=== PATIENT | male | born 1960 | race Caucasian/White ===

== ENCOUNTER 2017-02-13 13:35 | Emergency (ER) | payer OTHER ==
[~2017-02-13] VITALS: Ht 175.3 cm; Wt 94.0 kg
[~2017-02-13 13:35] MED LIST: BUSP10 PO; DEPA500T3 PO; NAPR-576 PO; SERT-132 PO
[2017-02-13 13:40] VITALS: BP 131/66; PULSE 83; RESP 16; TEMP 97.7; O2SAT 97
[2017-02-13] MEDS ORDERED: BUSP10TA PO (13:59)
[2017-02-13] MEDS ORDERED: DEPA500T3 PO (13:59)
[2017-02-13] MEDS ORDERED: SERT-132 PO (13:59)
--- NOTE | 2017-02-13 14:17 | PD ---
HPI Chief Complaint: Injury Time Seen by Provider: 14:13 Travel History International Travel<30 days: No Contact w/Intl Traveler<30days: No Traveled to known affect area: No History of Present Illness HPI 56-year-old male here with bilateral hand pain after bricks fell onto his hands issued at work yesterday. He reports normal sensation and full range of motion of all digits. He has pain with palpation of the left third digit and right third digit. He came for evaluation today because the pain continued. Symptom severity is mild. Aggravated by palpation of the fingers and range of motion and relieved with rest PFSH Past Medical History Blood Disorders: No Bipolar Disorder: Yes Depression: Yes Cancer: No Cardiovascular Problems: Yes High Cholesterol: Yes Diminished Hearing: No Endocrine: No Gastrointestinal Disorders: Yes Genitourinary: No Headaches: Yes Immune Disorder: No Musculoskeletal: Yes Neurologic: Yes Psychiatric: Yes Reproductive: No Respiratory: Yes Migraines: Yes Tetanus Vaccination: Unknown Past Surgical History Pacemaker: No Other Surgery: Yes Social History Alcohol Use: No Tobacco Use: Yes (1/2 ppd) Substance Use: No Allergies-Medications (Allergen,Severity, Reaction): Coded Allergies: No Known Allergies (Verified , 08/17/15) Reported Meds & Prescriptions Reported Meds & Active Scripts Active Reported Sertraline (Sertraline HCl) 50 Mg Tab 50 Mg PO DAILY Depakote ER (Divalproex Sodium) 500 Mg Wilmer 1,500 Mg PO DAILY Buspirone (Buspirone HCl) 10 Mg Tab 10 Mg PO DAILY Review of Systems Except as stated in HPI: all other systems reviewed are Neg Physical Exam Narrative GENERAL: Well-nourished, well-developed patient. SKIN: Focused skin assessment warm/dry. Small abrasion to the left hand dorsal aspect HEAD: Normocephalic. EYES: No scleral icterus. No injection or drainage. NECK: Supple, trachea midline. No JVD or lymphadenopathy. MUSCULOSKELETAL: No cyanosis, or edema. Reported pain and tenderness to bilateral hands. Small amount of ecchymosis noted to the right hand distal third digit. Patient has full range of motion and normal sensation of both hands. No deformity. Brisk cap refill. Data Data Last Documented VS Vital Signs Date Time Temp Pulse Resp B/P (MAP) Pulse Ox O2 Delivery O2 Flow Rate FiO2 02/13/17 13:40 97.7 83 16 131/66 (87) 97 Orders Orders Hand, Complete ([id number]) (02/13/17 ) Hand, Complete ([id number]) (02/13/17 ) [facility] Medical Decision Making Medical Screen Exam Complete: Yes Emergency Medical Condition: Yes Differential Diagnosis Contusion, abrasion, finger sprain, fracture Narrative Course 56-year-old male here for evaluation of bilateral hand pain after bricks fell onto his hands at work yesterday. On exam he has several very superficial abrasions and reported tenderness throughout his hands. No deformity noted. No swelling noted. Small amount of ecchymosis to the right third digit. Full range of motion and normal sensation. X-ray pending X-ray is negative for fracture Diagnosis Primary Impression: Contusion of hand(s) Referrals: [facility] Additional Instructions: Take [id number] ibuprofen 600 mg every 6 hours as needed for pain. Ice and elevate the extremities. Avoid heavy lifting or strenuous activity. Disposition: 01 DISCHARGE HOME Condition: Stable Marilee Hewitt Feb 13, 2017 14:17
--- NOTE | 2017-02-13 14:22 | RADRPT ---
EXAM DATE/TIME: 02/13/2017 14:00 [facility] COMPARISON: No previous studies available for comparison. INDICATIONS : Left hand pain to anterior distal phalanges after sandra fell on it. MEDICAL HISTORY : None. SURGICAL HISTORY : None. ENCOUNTER: Initial ACUITY: 2 days PAIN SCORE: 8/10 LOCATION: Left distal phalanges FINDINGS: Three view examination of the left hand demonstrates no soft tissue swelling, dislocation, or fractur e. The carpal bones appear intact. The interphalangeal and metacarpophalangeal joints are intact. There is a well-corticated fragment adjacent to the tip of the ulnar styloid characteristic of old i njury. Bony mineralization is normal. CONCLUSION: 1. No evidence of recent bony injury. 2. No radiopaque foreign bodies. 3. Old injury to the tip of the ulnar styloid without bony fusion. Ramone Howell MD on February 13, 2017 at 14:20 Board Certified Radiologist. This report was verified electronically.
--- NOTE | 2017-02-13 14:23 | RADRPT ---
EXAM DATE/TIME: 02/13/2017 14:00 [facility] COMPARISON: No previous studies available for comparison. INDICATIONS : Right hand pain primarily to anterior thumb area after a cinderblock fell on it. MEDICAL HISTORY : None. SURGICAL HISTORY : None. ENCOUNTER: Initial ACUITY: 2 days PAIN SCORE: 9/10 LOCATION: Right hand/thumb. FINDINGS: Three view examination of the right hand demonstrates no soft tissue swelling, dislocation, or fractu re. The carpal bones appear intact. The interphalangeal and metacarpophalangeal joints are intact. Bony mineralization is normal. No radiopaque foreign bodies. CONCLUSION: No evidence of recent bone injury. Ramone Howell MD on February 13, 2017 at 14:21 Board Certified Radiologist. This report was verified electronically.
== END 2017-02-13 15:30 | disposition home or self-care (01) ==
LOC: PHEFT 13:35
DX: S60.221A Contusion of right hand, initial encounter (principal); S60.222A Contusion of left hand, initial encounter; W20.8XXA Other cause of strike by thrown, projected or falling object, initial encounter; Y99.0 Civilian activity done for income or pay
CPT/HCPCS: 73130; 99283

== ENCOUNTER 2017-08-23 16:40 | Emergency (ER) | payer MEDICARE, OTHER ==
[~2017-08-23] VITALS: Ht 177.8 cm; Wt 95.0 kg
[~2017-08-23 16:40] MED LIST changes: -BUSP10 PO; +BUSP10TA PO; -NAPR-576 PO
[2017-08-23 16:45] VITALS: BP 114/62; PULSE 97; RESP 20; TEMP 98.6; O2SAT 98
--- NOTE | 2017-08-23 17:15 | PD ---
HPI Chief Complaint: Edema Time Seen by Provider: 17:14 Travel History International Travel<30 days: No Contact w/Intl Traveler<30days: No Traveled to known affect area: No History of Present Illness HPI 57-year-old male came to the emergency room with history of bilateral lower extremity edema for past 1 week. Patient says he has been having trouble wearing his shoes because of the swelling. He has some pain once again because of the swelling. No history of fever or chills. No history of injury. He noticed a rash appearing yesterday over the lower extremity below the knee bilaterally. Vital signs are stable. Patient has psychiatric history and is on psych medications. No known medical conditions as far as the patient knows. Patient has never had this kind of swelling in the past. He is here with his . Patient is concerned if this could be from bug bites. [facility] Past Medical History Narrative Medical List of his past medical, surgical, social and family history is reviewed from the nursing note Blood Disorders: No Bipolar Disorder: Yes Depression: Yes Cancer: No Cardiovascular Problems: Yes High Cholesterol: Yes Diminished Hearing: No Endocrine: No Gastrointestinal Disorders: Yes Genitourinary: No Headaches: Yes Immune Disorder: No Musculoskeletal: Yes Neurologic: Yes Psychiatric: Yes Reproductive: No Respiratory: Yes Migraines: Yes Past Surgical History Pacemaker: No Other Surgery: Yes Social History Alcohol Use: No Tobacco Use: Yes (/2 ppd) Substance Use: No Allergies-Medications (Allergen,Severity, Reaction): Coded Allergies: No Known Allergies (Verified , 08/17/15) Comments List of his allergies reviewed from the nursing note. Reported Meds & Prescriptions Reported Meds & Active Scripts Active Reported Sertraline (Sertraline HCl) 50 Mg Tab 50 Mg PO DAILY Depakote ER (Divalproex Sodium) 500 Mg Wilmer 1,500 Mg PO DAILY Buspirone (Buspirone HCl) 10 Mg Tab 10 Mg PO DAILY Narrative Medication List of his home medications reviewed from the nursing note. Review of Systems Except as stated in HPI: all other systems reviewed are Neg Musculoskeletal: Positive: Edema Skin: Positive Rash Physical Exam Narrative GENERAL: Awake, alert, poor skin hygiene SKIN: Focused skin assessment warm/dry. Poor skin hygiene. Bilateral symmetrical erythematous maculopapular rash on bilateral lower extremities extending distal to the knees HEAD: Atraumatic. Normocephalic. EYES: Pupils equal and round. No scleral icterus. No injection or drainage. ENT: No nasal bleeding or discharge. Mucous membranes pink and moist. NECK: Trachea midline. No JVD. CARDIOVASCULAR: Regular rate and rhythm. No murmur appreciated. RESPIRATORY: No accessory muscle use. Clear to auscultation. Breath sounds equal bilaterally. GASTROINTESTINAL: Abdomen soft, non-tender, nondistended. Hepatic and splenic margins not palpable. MUSCULOSKELETAL: No obvious deformities. No clubbing. No cyanosis. Bilateral lower extremity ankle edema NEUROLOGICAL: Awake and alert. No obvious cranial nerve deficits. Motor grossly within normal limits. Normal speech. PSYCHIATRIC: Appropriate mood and affect; insight and judgment normal. Data Data Last Documented VS Vital Signs Date Time Temp Pulse Resp B/P (MAP) Pulse Ox O2 Delivery O2 Flow Rate FiO2 08/23/17 16:45 98.6 97 20 114/62 (79) 98 Orders Orders Complete Blood Count With Diff (08/23/17 17:29) Basic Metabolic Panel (Bmp) (08/23/17 17:29) B-Type Natriuretic Peptide (08/23/17 17:29) Electrocardiogram (08/23/17 ) Valproic Acid (Depakene) (08/23/17 17:29) Ed Discharge Order (08/23/17 19:50) Labs Laboratory Tests Test 08/23/17 17:40 White Blood Count 6.3 TH/MM3 Red Blood Count 3.86 MIL/MM3 Hemoglobin 12.3 GM/DL Hematocrit 34.9 % Mean Corpuscular Volume 90.6 FL Mean Corpuscular Hemoglobin 32.0 PG Mean Corpuscular Hemoglobin Concent 35.3 % Red Cell Distribution Width 13.8 % Platelet Count 203 TH/MM3 Mean Platelet Volume 8.3 FL Neutrophils (%) (Auto) 71.3 % Lymphocytes (%) (Auto) 16.8 % Monocytes (%) (Auto) 9.8 % Eosinophils (%) (Auto) 1.4 % Basophils (%) (Auto) 0.7 % Neutrophils # (Auto) 4.5 TH/MM3 Lymphocytes # (Auto) 1.1 TH/MM3 Monocytes # (Auto) 0.6 TH/MM3 Eosinophils # (Auto) 0.1 TH/MM3 Basophils # (Auto) 0.0 TH/MM3 CBC Comment DIFF FINAL Differential Comment Blood Urea Nitrogen 11 MG/DL Creatinine 1.21 MG/DL Random Glucose 120 MG/DL Calcium Level 8.9 MG/DL Sodium Level 142 MEQ/L Potassium Level 3.8 MEQ/L Chloride Level 106 MEQ/L Carbon Dioxide Level 25.4 MEQ/L Anion Gap 11 MEQ/L Estimat Glomerular Filtration Rate 62 ML/MIN B-Type Natriuretic Peptide 53 PG/ML Valproic Acid (Depakene) Level 26 MCG/ML MDM Medical Decision Making Medical Screen Exam Complete: Yes Emergency Medical Condition: Yes Medical Record Reviewed: Yes Interpretation(s) Twelve-lead EKG was reviewed by me. Normal sinus rhythm, normal axis, nonspecific ST-T wave changes. Heart rate of 83 bpm. Differential Diagnosis Congestive heart failure, dependent edema, drug adverse reaction Narrative Course 6:01 PM awaiting for blood test results to come back. Interestingly Depakote could cause rash and peripheral edema as well. If all the test results come back negative I would recommend the Depakote be taken off his medication regime. CBC is back and within normal limits. 7:25 PM all the labs are back except for the BNP which has been pending for past 2 hours since the machine at the lab is being calibrated I was told. Procedures EKG Prior to Arrival: No Diagnosis Primary Impression: Pedal edema Additional Impression: Adverse reaction to Depakote Referrals: [facility] Additional Instructions: You need to follow-up with your psychiatrist and talk to him about your symptoms being a possible adverse reaction to Depakote. Depakote should be discontinued by your psychiatrist. Follow-up at [facility] whose address has been provided to you on this discharge paper. Return to the ER if condition worsens any other new concerns. Keep the legs elevated as much as possible. Disposition: 01 DISCHARGE HOME Condition: Stable Alicia George MD Aug 23, 2017 17:15
[2017-08-23 17:56] LABS: AUTOMATED NEUTROPHIL # 4.5 TH/MM3 (1.8-7.7); BASOPHIL % 0.7 % (0.0-2.0); EOSINOPHIL # 0.1 TH/MM3 (0-0.4); EOSINOPHIL % 1.4 % (0.0-4.0); HEMATOCRIT 34.9 % (39.0-51.0); HEMOGLOBIN 12.3 GM/DL (13.0-17.0); LYMPH % 16.8 % (9.0-44.0); LYMPHOCYTE # 1.1 TH/MM3 (1.0-4.8); MEAN CELL VOLUME 90.6 FL (80.0-100.0); MEAN CORPUSCULAR HGB CONC 35.3 % (32.0-36.0); MEAN PLATELET VOLUME 8.3 FL (7.0-11.0); MONO % 9.8 % (0.0-8.0); MONOCYTE # 0.6 TH/MM3 (0-0.9); NEUT % 71.3 % (16.0-70.0); PLATELET COUNT 203 TH/MM3 (150-450); RED BLOOD COUNT 3.86 MIL/MM3 (4.50-5.90); RED CELL DISTRIBUTION WIDTH 13.8 % (11.6-17.2); WHITE BLOOD COUNT 6.3 TH/MM3 (4.0-11.0)
[2017-08-23 18:19] LABS: BICARBONATE 25.4 MEQ/L (21.0-32.0); CALCIUM 8.9 MG/DL (8.5-10.1); CREATININE 1.21 MG/DL (0.60-1.30)
--- NOTE | 2017-08-24 15:59 | EKG ---
Date Performed: 08/23/2017 Time Performed: 17:45:47 PTAGE: 57 years EKG: Sinus rhythm Within normal limits PREVIOUS TRACING : 12/16/2006 13.31 Since previous tracing, no significant change. DOCTOR: Brian Badillo Interpretating Date/Time 08/24/2017 15:58:35
== END 2017-08-23 20:45 | disposition home or self-care (01) ==
LOC: NEPD 16:40
DX: R60.0 Localized edema (principal); T42.6X5A Adverse effect of other antiepileptic and sedative-hypnotic drugs, initial encounter; R21 Rash and other nonspecific skin eruption; F17.200 Nicotine dependence, unspecified, uncomplicated; F31.9 Bipolar disorder, unspecified
CPT/HCPCS: 80048; 80164; 83880; 85025; 93005